=== PATIENT | male | born 2000 | race Caucasian/White ===

== ENCOUNTER 2025-05-19 19:03 | Emergency (ER) | payer BC ==
[~2025-05-19] VITALS: Ht 177.8 cm; Wt 95.3 kg
[2025-05-19] MEDS ORDERED: ADIPEX-P37.5 M2 PO (19:18)
[2025-05-19 19:45] LABS: BASO # 0.1 10*3/uL (0.0-0.1); BASO % 0.5 % (0.0-1.0); EOS # 1.0 10*3/uL (0.0-0.4); EOS % 5.0 % (1.0-4.0); MEAN CELL VOLUME 91.6 fl (80.0-94.0); MEAN CORPUSCULAR HGB 31.3 pg (27.0-31.0); MEAN PLATELET VOLUME 8.9 fl (9.6-12.3); MONO # 1.4 10*3/uL (0.1-1.0); MONO % 6.9 % (3.0-9.0); NEUT # 15.7 10*3/uL (2.3-7.9); NEUT % 75.5 % (47.0-73.0); NUCLEATED RED BLOOD CELL 0.0 % (0.0-0.0); NUCLEATED RED BLOOD CELL 0.0 10*3/uL (0.0-0.0); PLATELET COUNT AUTOMATED 523 10*3/uL (130-400); RED CELL DISTRI WIDTH 13.0 % (0-14.5)
[2025-05-19] MEDS ORDERED: LORazepam 1 MG TAB PO ONE (19:55)
[2025-05-19 20:12] LABS: BUN 13 mg/dl (9-23); CPK 684 U/L (34-171)
== END 2025-05-19 20:39 | disposition home or self-care (01) ==
LOC: ED 19:03
PROVIDERS: Internal Medicine
DX: D72.829 Elevated white blood cell count, unspecified (principal); T50.905A Adverse effect of unspecified drugs, medicaments and biological substances, initial encounter; D75.839 Thrombocytosis, unspecified; R74.8 Abnormal levels of other serum enzymes; Y92.89 Other specified places as the place of occurrence of the external cause